=== PATIENT | male | born 1955 | race Caucasian/White ===

== ENCOUNTER → 2018-12-28 14:21 | Outpatient (CLI) | payer MEDICARE, MEDICAID, SELFPAY ==
[2018-12-20 15:13] VITALS: BMI 37.5
--- NOTE | 2018-12-28 14:22 | CT_ITS ---
STUDY: CT CHEST WITH CONTRAST REASON FOR EXAM: Male, 63 years old. Midsternal chest pain. Hypertension. RADIATION DOSAGE (If Supplied By Facility): CTDIvol = ( 17.32 ) mGy, DLP = ( 881.15 ) mGycm TECHNIQUE: Transaxial imaging was performed following intravenous administration of IV Isovue 370 100. Multiplanar coronal and sagittal images were reformatted. Individualized dose optimization techniques were used for this CT. COMPARISON: None. FINDINGS: The lungs are normal. There is no demonstrated pleural abnormality. Normal heart and pericardium. There are multiple small lymph nodes within the mediastinum, which are normal in size and morphology most compatible with reactive lymph hyperplasia. Normal hilar regions. Normal enhanced pulmonary arteries. Normal aorta arch and descending thoracic aorta. There are mild degenerative changes of the thoracic spine. Small hiatal hernia. CT/Chest WITH Contrast IMPRESSION: No acute abnormalities seen. No evidence of thoracic aortic aneurysm. Electronically Signed: Greg Casey, at 12:47 EDT , Service support ,
[2018-12-28 14:41] LABS: CREATININE FINGERSTICK 0.7 mg/dL (0.70-1.30); EGFR FINGERSTICK > 60.0000 mL/min (>60)
== END ==
PROVIDERS: Family Provider Internal Medicine; PCP Internal Medicine; Referring Provider Internal Medicine Cardiovascular Disease; Visit Provider Internal Medicine Cardiovascular Disease
DX: I71.2 Thoracic aortic aneurysm, without rupture (principal)
CPT/HCPCS: 71260; Q9967

== ENCOUNTER → 2019-01-17 08:30 | Outpatient (CLI) | payer MEDICARE, MEDICAID, SELFPAY ==
[2018-12-20 15:13] VITALS: BMI 37.5
[2019-01-09 09:20] VITALS: BMI 37.5
[2019-01-09 12:08] LABS: Hematocrit 48.4 % (40-54); Hemoglobin 16.9 g/dL (13.0-16.5); Mean Corp Hgb Conc 34.9 g/dL (32-36); Mean Corpuscular Hgb 31.7 pg (27.0-32.0); Mean Corpuscular Volume 90.8 fL (80-94); Mean Platelet Vol. 9.1 fl (6.2-12.0); Platelet Count 250 K/mm3 (150-450); RBC Distribution Width CV 12.8 % (11.6-14.6); RBC Distribution Width SD 42.4 fl (35.1-43.9); Red Blood Count 5.33 M/mm3 (4.6-6.2); White Blood Count 7.4 K/mm3 (4.4-11.0)
[2019-01-09 12:09] LABS: Anion Gap 7 (5-15); BUN 13 mg/dL (7-18); BUN/Creat Ratio 14.1 RATIO (10-20); Chloride 102 mmol/L (98-107); Creatinine, Serum 0.92 mg/dL (0.70-1.30); EST Glomerular Filtration Rate 89 mL/min (>60); Est Glom Filt Rate - Afr Amer 108 mL/min (>60); Glucose 136 mg/dL (74-106); International Normalized Ratio 1.1; Partial Thromboplast Time 31.3 Seconds (24.1-36.2); Potassium 4.3 mmol/L (3.5-5.1); Prothrombin Time (Protime)PT. 13.5 SECONDS (11.7-14.9); Sodium Level 137 mmol/L (136-145)
== END ==
PROVIDERS: Family Provider Internal Medicine; PCP Internal Medicine; Referring Provider Internal Medicine Cardiovascular Disease; Visit Provider Internal Medicine Cardiovascular Disease
DX: R07.9 Chest pain, unspecified (principal); R06.02 Shortness of breath; I35.0 Nonrheumatic aortic (valve) stenosis
CPT/HCPCS: 36415; 80048; 85027; 85610; 85730

== ENCOUNTER 2019-04-20 13:12 | Inpatient (IN) | payer MEDICARE, MEDICAID, SELFPAY ==
[2019-01-09 09:20] VITALS: BMI 37.5
[2019-04-20] VITALS (15 sets, daily range): BP systolic 104–142; BP diastolic 62–89; PULSE 78–102; RESP 16–23; TEMP 35.9–36.7; O2SAT 92–98; BMI 30.7; BMI 30.8; BMI 37.0
--- NOTE | 2019-04-20 13:36 | EKG12_ITS ---
Test Reason : REPEAT Blood Pressure : / mmHG Vent. Rate : 090 BPM Atrial Rate : 090 BPM P-R Int : 176 ms QRS Dur : 078 ms QT Int : 330 ms P-R-T Axes : 062 039 088 degrees QTc Int : 403 ms Normal sinus rhythm Anteroseptal infarct , age undetermined Abnormal ECG Confirmed by MARY MAYEN, JAMES ([id number]), art editor GERALD VINES ([id number]) on 04/23/2019 2:06:32 PM Referred By: NANCY Confirmed By:SUBHASH HERNANDEZ MD
--- NOTE | 2019-04-20 13:37 | EKG12_ITS ---
Test Reason : CP Blood Pressure : / mmHG Vent. Rate : 091 BPM Atrial Rate : 091 BPM P-R Int : 172 ms QRS Dur : 080 ms QT Int : 326 ms P-R-T Axes : 068 042 094 degrees QTc Int : 400 ms Normal sinus rhythm Anteroseptal infarct , age undetermined Abnormal ECG Confirmed by MARY MAYEN, JAMES ([id number]), primer expeditor and drier GERALD VINES ([id number]) on 04/23/2019 2:06:18 PM Referred By: NANCY Confirmed By:SUBHASH HERNANDEZ MD
[2019-04-20 13:45] LABS: Absolute Lymphocyte Count 1.77 X10^3/uL (0.83-4.51); Absolute Neutrophil Count 5.9 X10^3/uL (2.0-7.7); Basophil# 0.05 X10^3/uL; Basophil% 0.6 % (0-1); Eosinophil# 0.07 X10^3/uL; Eosinophils% 0.8 % (0-5); Hematocrit 49.3 % (40-54); Hemoglobin 16.5 g/dL (13.0-16.5); Lymphocyte # 1.77 X10^3/ul (4.0); Lymphocyte % 19.9 % (19-41); Mean Corp Hgb Conc 33.5 g/dL (32-36); Mean Corpuscular Hgb 30.5 pg (27.0-32.0); Mean Corpuscular Volume 91.1 fL (80-94); Mean Platelet Vol. 9.1 fl (6.2-12.0); Monocyte# 1.09 X10^3/uL; Monocyte% 12.3 % (0-10); NRBC Flagged by Analyzer 0 % (0-5); Neutrophil # 5.88 X10^3/uL (2.7-7.7); Neutrophil % 66.1 % (47-70); Platelet Count 220 K/mm3 (150-450); RBC Distribution Width SD 43.4 fl (35.1-43.9); Red Blood Count 5.41 M/mm3 (4.6-6.2); White Blood Count 8.9 K/mm3 (4.4-11.0)
--- NOTE | 2019-04-20 13:47 | RAD_ITS ---
STUDY: X-RAY CHEST REASON FOR EXAM: Male, 63 years old. CHEST PAIN, EPIGASTRIC PAIN TECHNIQUE: AP COMPARISON: None. FINDINGS: EKG The lungs are clear and expanded. There is no demonstrated pleural abnormality. Normal size heart for portable technique. Normal mediastinum and kelli. Normal visualized pulmonary arteries for portable technique. Normal visualized aortic arch and descending thoracic aorta. Normal visualized thoracic spine. Normal visualized ribs, clavicles, and shoulders. There is no demonstrated abnormality of the visualized soft tissue structures of the upper abdomen. RAD/Chest 1 View (Portable) IMPRESSION: Nonacute portable x-ray examination of the chest. Electronically Signed: Aman Salgado MD (Brooks) at 15:39 EST , Service support ,
[2019-04-20 13:55] LABS: International Normalized Ratio 1.1; Prothrombin Time (Protime)PT. 13.6 SECONDS (11.7-14.9)
[2019-04-20 13:56] LABS: Partial Thromboplast Time 29.2 Seconds (24.1-36.2)
--- NOTE | 2019-04-20 13:57 | ED.DCSUM_ITS ---
History of Present Illness Chief Complaint: Chest Pain Informant: Patient Narrative: Patient presents to the emergency department for the evaluation of a burning pain across his lower anterior chest. It is worse with exertion. He states is been constant since 1030 last night. Patient seems also to change his story however and at some points tells me that the pain is not there. He says he first experienced it about a year ago while raking leaves. He recently transferred care from Dr. Summers to Dr. Gutierrez. He has a history of a bicuspid aortic valve with moderately severe stenosis (nonrheumatic).. In November 2018 he did not wish to proceed with invasive evaluation of his aortic valve. There was reported thoracic aortic aneurysm but on CT of the chest was noted not to have that. He has a history of hypertension mixed hyperlipidemia. Also a history of diabetes. He is a smoker. Past Medical History - Allergies and Home Meds Allergies/Adverse Reactions: Allergies No Known Allergies Allergy (Verified 04/20/19 13:24) Primary Care Physician: Rio Freire MD [Primary Care Provider] - Smoking Status: Current every day smoker Review of Systems General: Denies: Chills, Fever, Sweats Eyes: Denies: Visual changes - bilaterally, Diplopia ENT: Denies: Rhinorrhea, Sore throat Cardiovascular: Reports: Chest pain. Denies: Palpitations Respiratory: Reports: Dyspnea. Denies: Cough, Dyspnea on exertion Gastrointestinal: Denies: Abdominal pain, Nausea, Vomiting, Diarrhea, Melena, Hematochezia Genitourinary: Denies: Dysuria, Hematuria, Frequency Musculoskeletal: Denies: Back pain, Extremity Pain Skin: Denies: Rash, Wounds Neurological: Denies: Headache, Weakness, Numbness Physical Exam Vital Signs/Narrative: Vital Signs Temp Pulse Resp BP Pulse Ox 04/20/19 13:15 96.7 F L 102 H 18 142/71 H 98 Inital Vital Signs reviewed: Yes General: Well nourished, Well developed, No Acute Distress Head: Normocephalic, Atraumatic Eyes: Perrl, EOMI ENT: Moist mucous membranes, No rhinorrhea Neck: Supple, Nontender Cardiovascular: Regular rate, Regular rhythm Respiratory: No distress, CTA bilaterally, Chest nontender Abdomen: Soft, Nontender, Nondistended, Normal bowel sounds Back: Nontender, Normal Inspection Extremities: Nontender, No edema Skin: Normal color, No rash Neurological: Alert, Oriented x3, Cranial nerves II-XII grossly intact, Normal Strength, Normal Sensation Psychological: Normal affect, Normal Mood Diagnostic/Tx/Re-eval - Medical Decision Making His initial EKG is concerning in lead III for upsloping of the ST segments. There is a deep Q wave in V3 as well as ST elevation. These were not noted on EKG dated 12/20/2018. Dr. Sena was contacted who is come to the emergency department and evaluated the EKGs. We repeated it 20 minutes after his first. At this point we do not feel that he is meeting STEMI criteria. The patient's troponin returned at 5.89. I spoke again with Dr. Sena and we will take the patient to the [facility]. Patient is currently telling me that he is not having any discomfort. He received 5000 units of heparin and aspirin. - Critical Care Time Critical care time (excluding procedures): 30-74 minutes - 35 minutes ED Disposition - Plan for ED Patient: Disposition: Home or Assisted Living Diagnosis: NSTEMI (non-ST elevated myocardial infarction), Unstable angina Referrals: Rio Freire MD [Primary Care Provider] -
[2019-04-20 14:06] LABS: Anion Gap 6 (5-15); BUN 12 mg/dL (7-18); Calcium,Total 10.2 mg/dL (8.5-10.1); Chloride 99 mmol/L (98-107); EST Glomerular Filtration Rate 81 mL/min (>60); Est Glom Filt Rate - Afr Amer 98 mL/min (>60); Estimated Creatinine Clearance 67.48 ml/min; Glucose 105 mg/dL (74-106); Magnesium 2.1 mg/dL (1.6-2.6); Potassium 4.5 mmol/L (3.5-5.1); Sodium Level 136 mmol/L (136-145)
[2019-04-20 14:12] LABS: Alcohol, Blood (Medical)-Serum < 3.0 mg/dL
[2019-04-20] MEDS: Heparin 10,000 UNITS/10 ML Vial 5000 UNITS IV (14:16)
[2019-04-20] MEDS: Aspirin 325 MG Tablet PO (14:16)
--- NOTE | 2019-04-20 14:21 | NURSING ---
ICU AFTER GAMING DIRECTOR MARIEL SMITH
--- NOTE | 2019-04-20 14:39 | NURSING ---
[id number]
--- NOTE | 2019-04-20 14:54 | PCM.CONS.C ---
Reason for Consult Date of Consultation: 04/20/19 History of Present Illness: Patient presents to the emergency department for the evaluation of a burning pain across his lower anterior chest. It is worse with exertion. He states is been constant since 1030 last night. Patient seems also to change his story however and at some points tells me that the pain is not there. He says he first experienced it about a year ago while raking leaves. He recently transferred care from Dr. Summers to Dr. Gutierrez. He has a history of a bicuspid aortic valve with moderately severe stenosis (nonrheumatic).. In November 2018 he did not wish to proceed with invasive evaluation of his aortic valve. There was reported thoracic aortic aneurysm but on CT of the chest was noted not to have that. He has a history of hypertension mixed hyperlipidemia. Also a history of diabetes. He is a smoker. Patient is a poor historian. He is unable to pinpoint when his symptoms started and why he decided to come to the ER today. He initially said that his pain went away with Pepto-Bismol. Later on in the conversation he said that he has minimal chest discomfort. Further on he said that when he sits up his pain goes away. Patient's EKG was reviewed and revealed Q waves and ST elevation in the anterior leads. Repeat EKG revealed no significant dynamic changes. At that point since patient was not having any chest pain we felt that it will be reasonable to wait for his troponin and reevaluate the patient. The troponin came back at 5.8. Patient states that he has minimal chest discomfort. He emphasizes that he will not have open heart surgery and will not go out of the [facility] to [facility] or [place] for any medical care. He states that he would rather here in [place] then go out of the area. Review of systems: All systems reviewed. All else is negative except that in the HPI. Past Medical History Allergies/Adverse Reactions: Allergies No Known Allergies Allergy (Verified 04/20/19 13:24) Home Medications: Ambulatory Orders Medication Instructions Recorded gabapentin 300 mg capsule 300 mg PO BID 08/17/18 glipizide 5 mg tablet 10 mg PO DAILY tab 08/17/18 lisinopril 10 mg tablet 10 mg PO DAILY 08/17/18 nitroglycerin 0.4 mg sublingual 0.4 mg SUBLINGUAL Q5-15M PRN 08/17/18 tablet pravastatin 40 mg tablet 40 mg PO QHS tab 08/17/18 aspirin 81 mg tablet,delayed 81 mg PO DAILY tab 12/20/18 release metformin 500 mg tablet 500 mg PO BID tab 12/20/18 Past Medical History (Chronic Problems): Chronic Problems (Last Updated 12/20/18 @ 15:28 by Evelia Salazar) Type 2 diabetes mellitus (Chronic) Mixed hyperlipidemia (Chronic) GERD (gastroesophageal reflux disease) (Chronic) COPD (chronic obstructive pulmonary disease) (Chronic) Thoracic aortic aneurysm without rupture (Chronic) Essential hypertension (Chronic) Nonrheumatic aortic (valve) stenosis (Chronic) Bicuspid aortic valve (Chronic) PAD (peripheral artery disease) (Chronic) Smoking Status: Current every day smoker Objective: Vital Signs Temp Pulse Resp BP Pulse Ox 96.7 F L 102 H 18 142/71 H 98 04/20/19 13:15 04/20/19 13:15 04/20/19 13:15 04/20/19 13:15 04/20/19 13:15 Oxygen Delivery Method Room Air Weight: 185 lb Body Mass Index (BMI) 30.7 General: Awake, Alert, Oriented x 3 HEENT: Atraumatic Oral: Moist Mucosa Neck: Supple Cardiovascular: Regular Rhythm Abdomen: Soft Skin: No Rashes Psych/Mental Status: Appropriate 04/20/19 13:35: WBC 8.9, RBC 5.41, Hgb 16.5, Hct 49.3, MCV 91.1, MCH 30.5, MCHC 33.5, Plt Count 220, MPV 9.1, Immature Gran % (Auto) 0.300, Neut % (Auto) 66.1, Lymph % (Auto) 19.9, [place] % (Auto) 12.3 H, Eos % (Auto) 0.8, Baso % (Auto) 0.6, Absolute Neuts (auto) 5.9, Nucleated RBC % 0 04/20/19 13:35: Sodium 136, Potassium 4.5, Chloride 99, Carbon Dioxide 31.0, Anion Gap 6, BUN 12, Creatinine 1.00, Est GFR (MDRD) Af Amer 98, Est GFR (MDRD) Non-Af 81, BUN/Creatinine Ratio 12.0, Glucose 105, Calcium 10.2 H, Magnesium 2.1, Troponin I 5.890 H* 04/20/19 13:35: PT 13.6, INR 1.1, APTT 29.2 Rhythm: EKG: ECHO: Stress Test: Cardiac Cath: PCI: CT Surgery: Holter monitor: EPS: PPM: CXR: Chest CT Scan: Assessment/Plan 1. Non-ST elevation IL: Treatment options were discussed with the patient in detail. We will proceed with coronary angiography. Patient is willing to proceed. Rest of the management will be based on coronary angiography findings. 2. Aortic stenosis: Patient would benefit from attic valve replacement at this point. However he had refused work-up for this. Once we have the angiographic findings we will discuss this with the patient again and see if he is willing to reconsider.
[2019-04-20 16:56] LABS: Bedside Glucose 103 mg/dL (70-110)
[2019-04-20] MEDS: 0.9% Normal Saline 1,000 ML 60 ML IV (17:00)
--- NOTE | 2019-04-20 17:46 | HP.PCM_ITS ---
<uW Deshpande - Last Filed: 04/20/19 17:46> Problem List (1) NSTEMI (non-ST elevated myocardial infarction) Status: Acute (2) CAD (coronary artery disease) Status: Chronic (3) Tobacco abuse Status: Chronic (4) Type 2 diabetes mellitus Status: Chronic (5) Mixed hyperlipidemia Status: Chronic (6) GERD (gastroesophageal reflux disease) Status: Chronic (7) COPD (chronic obstructive pulmonary disease) Status: Chronic (8) Thoracic aortic aneurysm without rupture Status: Chronic (9) Essential hypertension Status: Chronic (10) Nonrheumatic aortic (valve) stenosis Status: Chronic (11) Bicuspid aortic valve Status: Chronic (12) PAD (peripheral artery disease) Status: Chronic History of Present Illness Date of Admission: 04/20/19 Chief Complaint: chest pain The patient is a 63 year old M with pmhx of aortic stenosis, bicuspid aortic valve, nicotine abuse, DMt2, HTN, HLD, thoracic aortic aneurysm previous pt of [facility] cardiology who presented to the ER with c/o burning chest pain. He had this intermittently for up to a year when it first occurred raking leaves, however last night it started and remained constant, and then he had nausea and vomiting. He came to the ER and was found to have Q waves and ST changes in the anterior leads. Troponin was elevated at 5.890 and he was felt to have NSTEMI, and taken to the bottle label inspector by Dr. Sena. The patient had multi vessel disease and severe aortic stenosis and transfer to [facility] was refused. He initially wanted to stay here and have high risk PCI, however after being admitted to the hospital floor he changed his mind and desired transfer to [facility]. At this point he is waiting for acceptance and currently complains of mild burning chest pain. [] Past Medical History Past Medical History (Chronic Problems): Chronic Problems (Last Updated 12/20/18 @ 15:28 by Evelia Salazar) CAD (coronary artery disease) (Chronic) Tobacco abuse (Chronic) Type 2 diabetes mellitus (Chronic) Mixed hyperlipidemia (Chronic) GERD (gastroesophageal reflux disease) (Chronic) COPD (chronic obstructive pulmonary disease) (Chronic) Thoracic aortic aneurysm without rupture (Chronic) Essential hypertension (Chronic) Nonrheumatic aortic (valve) stenosis (Chronic) Bicuspid aortic valve (Chronic) PAD (peripheral artery disease) (Chronic) Medical History: Medical History (Last Updated 12/20/18 @ 15:28 by Evelia Salazar) Tobacco abuse (Acute) Z72.0 Type 2 diabetes mellitus (Chronic) E11.9 Mixed hyperlipidemia (Chronic) E78.2 GERD (gastroesophageal reflux disease) (Chronic) K21.9 COPD (chronic obstructive pulmonary disease) (Chronic) J44.9 Thoracic aortic aneurysm without rupture (Chronic) I71.2 Essential hypertension (Chronic) I10 Nonrheumatic aortic (valve) stenosis (Chronic) I35.0 Bicuspid aortic valve (Chronic) Q23.1 PAD (peripheral artery disease) (Chronic) I73.9 DDD (degenerative disc disease) Allergies No Known Allergies Allergy (Verified 04/20/19 13:24) Home Medications: Ambulatory Orders Medication Instructions Recorded gabapentin 300 mg capsule 300 mg PO BID 08/17/18 glipizide 5 mg tablet 10 mg PO DAILY tab 08/17/18 lisinopril 10 mg tablet 10 mg PO DAILY 08/17/18 nitroglycerin 0.4 mg sublingual 0.4 mg SUBLINGUAL Q5-15M PRN 08/17/18 tablet pravastatin 40 mg tablet 40 mg PO QHS tab 08/17/18 aspirin 81 mg tablet,delayed 81 mg PO DAILY tab 12/20/18 release metformin 500 mg tablet 500 mg PO BID tab 12/20/18 Surgical History: no surgical history Lives: Spouse/ Significant Other Smoking Status: Current every day smoker Tobacco Use: Cigarettes Alcohol: None Drugs: None - *Family History Maternal History Items: No pertinent history Paternal History Items: No pertinent history Review of Systems Constitutional: Denies: Chills, Fever, Weight Change HEENT: Denies: Head Aches, Sinus Congestion, Sinus Drainage Cardiovascular: Reports: Chest Pain. Denies: Palpitations Respiratory: Denies: Cough, Shortness of breath at rest, Sputum production Gastrointestinal: Reports: Nausea, Vomiting. Denies: Abdominal Pain Genitourinary: Denies: Dysuria Musculoskeletal: Denies: Joint Pain, Joint Tenderness Skin: Denies: Rash, Wounds Neurological: Denies: Numbness, Tingling, Focal weakness Psychiatric: Denies: Anxiety, Depression, Homicidal Ideations, Suicidal Ideations Hematologic/ Lymphatic: Denies: Easy Bruising, Easy Bleeding VTE Information - Inpt Only VTE Present on Admission: No VTE Mechan Device Prophylaxis: None VTE Pharm Prophylaxis ordered?: Yes Patient Problems: Active and Suspected Problems (Last Updated 12/20/18 @ 15:28 by Evelia Plascencia itt) NSTEMI (non-ST elevated myocardial infarction) (Acute) Unstable angina (Acute) - Physical Exam Vitals/I&O's: Vital Signs Temp Pulse Resp BP Pulse Ox 96.7 F L 79 18 113/63 92 04/20/19 13:15 04/20/19 17:30 04/20/19 17:30 04/20/19 17:30 04/20/19 17:30 Oxygen Delivery Method Room Air Weight: 222 lb 14.197 oz Body Mass Index (BMI) 37.0 General: Alert, Oriented x3, Cooperative HEENT: Atraumatic, PERRLA, EOMI, Normocephalic Neck: Supple, No JVD, Negative Carotid Bruits Lungs: Clear to auscultation, Normal air movement Cardiovascular: Regular rate, No murmurs Abdomen: Bowel Sounds Present, Soft, Non Tender Extremities: No edema, Capillary Refill Less than 3 Seconds Skin: No rashes, No breakdown Musculoskeletal: No Tenderness to Palpation of Joints or Extremities Neurological: Cranial nerves II-XII grossly intact Psych/Mental Status: Normal Affect, Appropriate Laboratory Results 04/20/19 13:35: WBC 8.9, RBC 5.41, Hgb 16.5, Hct 49.3, MCV 91.1, MCH 30.5, MCHC 33.5, RDW Std Deviation 43.4, RDW Coeff of Dwayne 13.0, Plt Count 220, MPV 9.1, Immature Gran % (Auto) 0.300, Neut % (Auto) 66.1, Lymph % (Auto) 19.9, Person % (Auto) 12.3 H, Eos % (Auto) 0.8, Baso % (Auto) 0.6, Absolute Neuts (auto) 5.9, Absolute Lymphs (auto) 1.77, Nucleated RBC % 0 04/20/19 13:35: Sodium 136, Potassium 4.5, Chloride 99, Carbon Dioxide 31.0, Anion Gap 6, BUN 12, Creatinine 1.00, Estim Creat Clear Calc 67.48, Est GFR (MDRD) Af Amer 98, Est GFR (MDRD) Non-Af 81, BUN/Creatinine Ratio 12.0, Glucose 105, Calcium 10.2 H, Magnesium 2.1, Troponin I 5.890 H* 04/20/19 13:35: PT 13.6, INR 1.1, APTT 29.2 04/20/19 13:35: Ethyl Alcohol < 3.0 04/20/19 16:50: POC Glucose 103 Current Medications Acetaminophen (Tylenol) 650 mg PO Q6H PRN PRN PRN Reason: Pain Score 1-10/Temp > 100.7 F Aspirin (Ecotrin) 81 mg PO DAILY@0800 [facility] Enoxaparin Sodium (Lovenox) 40 mg SC DAILY [facility] Gabapentin (Neurontin) 300 mg PO BID [facility] Glucagon () 1 mg IM .X1 PRN PRN Reason: Hypoglycemia Dextrose (Dextrose 10%-Water) 250 mls @ 999 mls/hr IV .Q16M PRN; Protocol PRN Reason: HYPOGLYCEMIA Sodium Chloride () 1,000 mls @ 60 mls/hr IV .[id number] [facility] Insulin Human Lispro (Humalog Kwikpen (Bkc)) 0 unit SC ACHS [facility]; Protocol Lisinopril (Zestril) 10 mg PO DAILY [facility] Melatonin (Melatonin) 3 mg PO QHS PRN PRN PRN Reason: INSOMNIA Nitroglycerin (Nitrostat) 0.4 mg SUBLINGUAL Q5M PRN PRN Reason: CARDIAC/CHEST PAIN Ondansetron HCl (Zofran) 4 mg IV Q8H PRN PRN PRN Reason: NAUSEA/VOMITING Pravastatin Sodium (Pravachol) 40 mg PO QHS [facility] Sodium Chloride () 10 - 40 ml IV UD PRN PRN Reason: SALINE FLUSH Assessment/Plan All Active Problems (Last Updated 12/20/18 @ 15:28 by Evelia Salazar) NSTEMI (non-ST elevated myocardial infarction) (Acute) Unstable angina (Acute) Chest pain (Acute) SOB (shortness of breath) (Acute) 1. CAD, NSTEMI, severe - s/p cath - transfer to [facility] for possible stents and/or TAVR. Dr. Sena following. EKG with anterior lead Q waves and ST changes. Repeat AM EKG if here. 2. Dmt2 - SSI, hold metformin, adjustment of therapy at DC to help prevent CV events would be ideal. 3. HTN - stable 4. HLD - pravastatin 5. Nicotine abuse - patch if necessary DVT ppx: lovenox DC planning: pending acceptance at [facility]. This patient was seen by Wu Deshpande PA-C under the supervision of Dr. Rivera. <Alcides Rivera F - Last Filed: 04/20/19 18:48> History of Present Illness The patient is a 63 year old M [] Past Medical History Medical History: Medical History (Last Updated 12/20/18 @ 15:28 by Evelia Salazar) Tobacco abuse (Acute) Z72.0 Type 2 diabetes mellitus (Chronic) E11.9 Mixed hyperlipidemia (Chronic) E78.2 GERD (gastroesophageal reflux disease) (Chronic) K21.9 COPD (chronic obstructive pulmonary disease) (Chronic) J44.9 Thoracic aortic aneurysm without rupture (Chronic) I71.2 Essential hypertension (Chronic) I10 Nonrheumatic aortic (valve) stenosis (Chronic) I35.0 Bicuspid aortic valve (Chronic) Q23.1 PAD (peripheral artery disease) (Chronic) I73.9 DDD (degenerative disc disease) Allergies No Known Allergies Allergy (Verified 04/20/19 13:24) - Physical Exam Vitals/I&O's: Vital Signs Temp Pulse Resp BP Pulse Ox 96.7 F L 88 16 109/63 93 04/20/19 13:15 04/20/19 18:29 04/20/19 18:29 04/20/19 18:29 04/20/19 18:29 Oxygen Delivery Method Room Air Weight: 222 lb 14.197 oz Body Mass Index (BMI) 37.0 Intake and Output for Last 24 Hours 04/18/19 04/19/19 04/20/19 23:59 23:59 23:59 Intake Total 200 / 200 Output Total 500 / 500 Balance -300 / -300 Laboratory Results 04/20/19 13:35: WBC 8.9, RBC 5.41, Hgb 16.5, Hct 49.3, MCV 91.1, MCH 30.5, MCHC 33.5, RDW Std Deviation 43.4, RDW Coeff of Dwayne 13.0, Plt Count 220, MPV 9.1, Immature Gran % (Auto) 0.300, Neut % (Auto) 66.1, Lymph % (Auto) 19.9, Person % (Auto) 12.3 H, Eos % (Auto) 0.8, Baso % (Auto) 0.6, Absolute Neuts (auto) 5.9, Absolute Lymphs (auto) 1.77, Nucleated RBC % 0 04/20/19 13:35: Sodium 136, Potassium 4.5, Chloride 99, Carbon Dioxide 31.0, Anion Gap 6, BUN 12, Creatinine 1.00, Estim Creat Clear Calc 67.48, Est GFR (MDRD) Af Amer 98, Est GFR (MDRD) Non-Af 81, BUN/Creatinine Ratio 12.0, Glucose 105, Calcium 10.2 H, Magnesium 2.1, Troponin I 5.890 H* 04/20/19 13:35: PT 13.6, INR 1.1, APTT 29.2 04/20/19 13:35: Ethyl Alcohol < 3.0 04/20/19 16:50: POC Glucose 103 Current Medications Acetaminophen (Tylenol) 650 mg PO Q6H PRN PRN PRN Reason: Pain Score 1-10/Temp > 100.7 F Aspirin (Ecotrin) 81 mg PO DAILY@0800 [facility] Enoxaparin Sodium (Lovenox) 40 mg SC DAILY [facility] Gabapentin (Neurontin) 300 mg PO BID [facility] Glucagon () 1 mg IM .X1 PRN PRN Reason: Hypoglycemia Dextrose (Dextrose 10%-Water) 250 mls @ 999 mls/hr IV .Q16M PRN; Protocol PRN Reason: HYPOGLYCEMIA Sodium Chloride () 1,000 mls @ 60 mls/hr IV .[id number] [facility] Last Admin: 04/20/19 17:00 Dose: 60 mls/hr Documented by: Insulin Human Lispro (Humalog Kwikpen (Bkc)) 0 unit SC ACHS [facility]; Protocol Lisinopril (Zestril) 10 mg PO DAILY [facility] Melatonin (Melatonin) 3 mg PO QHS PRN PRN PRN Reason: INSOMNIA Nitroglycerin (Nitrostat) 0.4 mg SUBLINGUAL Q5M PRN PRN Reason: CARDIAC/CHEST PAIN Ondansetron HCl (Zofran) 4 mg IV Q8H PRN PRN PRN Reason: NAUSEA/VOMITING Pravastatin Sodium (Pravachol) 40 mg PO QHS [facility] Sodium Chloride () 10 - 40 ml IV UD PRN PRN Reason: SALINE FLUSH Code Visit Addendum: Dr. Rivera I personally examined the patient and reviewed the chart. I agree with the above. 63-year-old male with a bicuspid aortic valve presents with chest pain. His EKG was not convincing for a STEMI however he did have an elevated troponin and he was taken for heart cath today. He was found to have triple-vessel disease as well as severe aortic stenosis with an aortic gradient of 40. It was felt that he was too high risk to have any stents placed here however he is difficult and convincing him that surgery is the best option. He does not want, under any circumstance, to have his chest cut open and therefore he is only willing to proceed with high risk PCI and then evaluation for a TAVR. He says that his chest pain is better, and he was discussed with transferring to [facility] initially he was resistant to it however we were able to convince him that it was his best option. So transfer is pending. Inpatient E&M: [id number] Init Hosp L3
--- NOTE | 2019-04-20 17:58 | PCM.DC.SUM ---
<Wu Deshpande - Last Filed: 04/20/19 17:58> Discharge Date and Diagnosis - Problem List Patient Problems: Active and Suspected Problems (Last Updated 12/20/18 @ 15:28 by Evelia Salazar) NSTEMI (non-ST elevated myocardial infarction) (Acute) Unstable angina (Acute) Date of Admission: 04/20/19 Date of Discharge: 04/20/19 - Primary Discharge Diagnosis Active and Suspected Problems (Last Updated 12/20/18 @ 15:28 by Evelia Salazar) NSTEMI (non-ST elevated myocardial infarction) (Acute) Severe Aortic stenosis multi vessel CAD Dmt2 HTN HLD nicotine abuse hx thoracic aortic aneurysm - Secondary Discharge Diagnosis Chronic Problems (Last Updated 12/20/18 @ 15:28 by Evelia Salazar) CAD (coronary artery disease) (Chronic) Tobacco abuse (Chronic) Type 2 diabetes mellitus (Chronic) Mixed hyperlipidemia (Chronic) GERD (gastroesophageal reflux disease) (Chronic) COPD (chronic obstructive pulmonary disease) (Chronic) Thoracic aortic aneurysm without rupture (Chronic) Essential hypertension (Chronic) Nonrheumatic aortic (valve) stenosis (Chronic) Bicuspid aortic valve (Chronic) PAD (peripheral artery disease) (Chronic) Hospital Course and Treatment Imaging Results: CATH REPORT PENDING. Consults: Cardiology Nathen Operations: None Procedures: Cardiac catheterization Summary of Care Provided: Hospital Course: The patient is a 63 year old M with pmhx of severe , thoracic aortic aneurysm, HTN, HLD, nicotine abuse, DMt2, who presented with burning chest pain. There were Q waves and ST changes in the anterior leads with an elevated troponin. Cardiology took the patient to the label machine operator and reported multivessel CAD with severe aortic stenosis. Transfer was recommended to [facility] for further intervention. The patient initially refused, later he changed his mind after arriving on the floor. Transfer was arranged. Currently he has mild burning chest pain. VSS. Further care as directed by accepting facility. This patient was seen by Wu Deshpande PA-C under the supervision of Dr. Rivera. [] Patient Problems: Active and Suspected Problems (Last Updated 12/20/18 @ 15:28 by Evelia Salazar) NSTEMI (non-ST elevated myocardial infarction) (Acute) Unstable angina (Acute) - Physical Exam Vitals/I&O's: Vital Signs Temp Pulse Resp BP Pulse Ox 96.7 F L 82 16 118/70 92 04/20/19 13:15 04/20/19 17:56 04/20/19 17:45 04/20/19 17:45 04/20/19 17:45 Oxygen Delivery Method Room Air Weight: 222 lb 14.197 oz Body Mass Index (BMI) 37.0 Intake and Output for Last 24 Hours 04/18/19 04/19/19 04/20/19 23:59 23:59 23:59 Intake Total 200 / 200 Output Total 500 / 500 Balance -300 / -300 General: Alert, Oriented x3, Cooperative HEENT: Atraumatic, PERRLA, EOMI, Normocephalic Neck: Supple, No JVD, Negative Carotid Bruits Lungs: Clear to auscultation, Normal air movement Cardiovascular: Regular rate, No murmurs Abdomen: Bowel Sounds Present, Soft, Non Tender Extremities: No edema, Capillary Refill Less than 3 Seconds Skin: No rashes, No breakdown Musculoskeletal: No Tenderness to Palpation of Joints or Extremities Neurological: Cranial nerves II-XII grossly intact Psych/Mental Status: Normal Affect, Appropriate, Alert and oriented to time, place, person, mood and affect Laboratory Results 04/20/19 13:35: WBC 8.9, RBC 5.41, Hgb 16.5, Hct 49.3, MCV 91.1, MCH 30.5, MCHC 33.5, RDW Std Deviation 43.4, RDW Coeff of Dwayne 13.0, Plt Count 220, MPV 9.1, Immature Gran % (Auto) 0.300, Neut % (Auto) 66.1, Lymph % (Auto) 19.9, [place] % (Auto) 12.3 H, Eos % (Auto) 0.8, Baso % (Auto) 0.6, Absolute Neuts (auto) 5.9, Absolute Lymphs (auto) 1.77, Nucleated RBC % 0 04/20/19 13:35: Sodium 136, Potassium 4.5, Chloride 99, Carbon Dioxide 31.0, Anion Gap 6, BUN 12, Creatinine 1.00, Estim Creat Clear Calc 67.48, Est GFR (MDRD) Af Amer 98, Est GFR (MDRD) Non-Af 81, BUN/Creatinine Ratio 12.0, Glucose 105, Calcium 10.2 H, Magnesium 2.1, Troponin I 5.890 H* 04/20/19 13:35: PT 13.6, INR 1.1, APTT 29.2 04/20/19 13:35: Ethyl Alcohol < 3.0 04/20/19 16:50: POC Glucose 103 Current Medications Acetaminophen (Tylenol) 650 mg PO Q6H PRN PRN PRN Reason: Pain Score 1-10/Temp > 100.7 F Aspirin (Ecotrin) 81 mg PO DAILY@0800 [facility] Enoxaparin Sodium (Lovenox) 40 mg SC DAILY [facility] Gabapentin (Neurontin) 300 mg PO BID [facility] Glucagon () 1 mg IM .X1 PRN PRN Reason: Hypoglycemia Dextrose (Dextrose 10%-Water) 250 mls @ 999 mls/hr IV .Q16M PRN; Protocol PRN Reason: HYPOGLYCEMIA Sodium Chloride () 1,000 mls @ 60 mls/hr IV .[id number] SOBIA Insulin Human Lispro (Humalog Kwikpen (Bkc)) 0 unit SC ACHS [facility]; Protocol Lisinopril (Zestril) 10 mg PO DAILY [facility] Melatonin (Melatonin) 3 mg PO QHS PRN PRN PRN Reason: INSOMNIA Nitroglycerin (Nitrostat) 0.4 mg SUBLINGUAL Q5M PRN PRN Reason: CARDIAC/CHEST PAIN Ondansetron HCl (Zofran) 4 mg IV Q8H PRN PRN PRN Reason: NAUSEA/VOMITING Pravastatin Sodium (Pravachol) 40 mg PO QHS [facility] Sodium Chloride () 10 - 40 ml IV UD PRN PRN Reason: SALINE FLUSH Discharge Diet: Low fat/ Low Cholesterol, 1800 Calorie Control Diet, 2000 mg Sodium Diet Discharge Activity: - - as directed by receiving facility Home Medications: Medications to take at Discharge gabapentin 300 mg capsule 300 mg PO BID 08/17/18 glipizide 5 mg tablet 10 mg PO DAILY tab 08/17/18 lisinopril 10 mg tablet 10 mg PO DAILY 08/17/18 nitroglycerin 0.4 mg sublingual tablet 0.4 mg SUBLINGUAL Q5-15M PRN 08/17/18 pravastatin 40 mg tablet 40 mg PO QHS tab 08/17/18 aspirin 81 mg tablet,delayed release 81 mg PO DAILY tab 12/20/18 metformin 500 mg tablet 500 mg PO BID tab 12/20/18 Primary Care Physician: Rio Freire MD [Primary Care Provider] - Please follow up with your Primary Care Physician in: as directed Please Follow Up With: Rolo Gutierrez MD When: as directed Disposition: Acute care Hospital Minutes spent on discharge:: 45 Medical Necessity - Tobacco Use Smoking Status: Current every day smoker Tobacco Use: Cigarettes Meaningful Use Info Meaningful Use Diagnoses (Choose all that apply): None applicable <Alcides Rivera - Last Filed: 04/20/19 18:51> Discharge Date and Diagnosis - Primary Discharge Diagnosis Active and Suspected Problems (Last Updated 12/20/18 @ 15:28 by Evelia Salazar) NSTEMI (non-ST elevated myocardial infarction) (Acute) Unstable angina (Acute) - Secondary Discharge Diagnosis Chronic Problems (Last Updated 12/20/18 @ 15:28 by Evelia Salazar) CAD (coronary artery disease) (Chronic) Tobacco abuse (Chronic) Type 2 diabetes mellitus (Chronic) Mixed hyperlipidemia (Chronic) GERD (gastroesophageal reflux disease) (Chronic) COPD (chronic obstructive pulmonary disease) (Chronic) Thoracic aortic aneurysm without rupture (Chronic) Essential hypertension (Chronic) Nonrheumatic aortic (valve) stenosis (Chronic) Bicuspid aortic valve (Chronic) PAD (peripheral artery disease) (Chronic) Hospital Course and Treatment Imaging Results: 04/20/19 13:47 Chest 1 View (Portable) [RAD] Stat Summary of Care Provided: The patient is a 63 year old M [] - Physical Exam Vitals/I&O's: Vital Signs Temp Pulse Resp BP Pulse Ox 96.7 F L 88 16 109/63 93 04/20/19 13:15 04/20/19 18:29 04/20/19 18:29 04/20/19 18:29 04/20/19 18:29 Oxygen Delivery Method Room Air Weight: 222 lb 14.197 oz Body Mass Index (BMI) 37.0 Intake and Output for Last 24 Hours 04/18/19 04/19/19 04/20/19 23:59 23:59 23:59 Intake Total 200 / 200 Output Total 500 / 500 Balance -300 / -300 Laboratory Results 04/20/19 13:35: WBC 8.9, RBC 5.41, Hgb 16.5, Hct 49.3, MCV 91.1, MCH 30.5, MCHC 33.5, RDW Std Deviation 43.4, RDW Coeff of Dwayne 13.0, Plt Count 220, MPV 9.1, Immature Gran % (Auto) 0.300, Neut % (Auto) 66.1, Lymph % (Auto) 19.9, [place] % (Auto) 12.3 H, Eos % (Auto) 0.8, Baso % (Auto) 0.6, Absolute Neuts (auto) 5.9, Absolute Lymphs (auto) 1.77, Nucleated RBC % 0 04/20/19 13:35: Sodium 136, Potassium 4.5, Chloride 99, Carbon Dioxide 31.0, Anion Gap 6, BUN 12, Creatinine 1.00, Estim Creat Clear Calc 67.48, Est GFR (MDRD) Af Amer 98, Est GFR (MDRD) Non-Af 81, BUN/Creatinine Ratio 12.0, Glucose 105, Calcium 10.2 H, Magnesium 2.1, Troponin I 5.890 H* 04/20/19 13:35: PT 13.6, INR 1.1, APTT 29.2 04/20/19 13:35: Ethyl Alcohol < 3.0 04/20/19 16:50: POC Glucose 103 Current Medications Acetaminophen (Tylenol) 650 mg PO Q6H PRN PRN PRN Reason: Pain Score 1-10/Temp > 100.7 F Aspirin (Ecotrin) 81 mg PO DAILY@0800 [facility] Enoxaparin Sodium (Lovenox) 40 mg SC DAILY [facility] Gabapentin (Neurontin) 300 mg PO BID [facility] Glucagon () 1 mg IM .X1 PRN PRN Reason: Hypoglycemia Dextrose (Dextrose 10%-Water) 250 mls @ 999 mls/hr IV .Q16M PRN; Protocol PRN Reason: HYPOGLYCEMIA Sodium Chloride () 1,000 mls @ 60 mls/hr IV .[id number] [facility] Last Admin: 04/20/19 17:00 Dose: 60 mls/hr Documented by: Insulin Human Lispro (Humalog Kwikpen (Bkc)) 0 unit SC ACHS [facility]; Protocol Lisinopril (Zestril) 10 mg PO DAILY [facility] Melatonin (Melatonin) 3 mg PO QHS PRN PRN PRN Reason: INSOMNIA Nitroglycerin (Nitrostat) 0.4 mg SUBLINGUAL Q5M PRN PRN Reason: CARDIAC/CHEST PAIN Ondansetron HCl (Zofran) 4 mg IV Q8H PRN PRN PRN Reason: NAUSEA/VOMITING Pravastatin Sodium (Pravachol) 40 mg PO QHS SOBIA Sodium Chloride () 10 - 40 ml IV UD PRN PRN Reason: SALINE FLUSH Code Visit Addendum: Dr. Rivera I personally examined the patient and reviewed the chart. I agree with the above. 63-year-old male with a bicuspid aortic valve presents with chest pain. His EKG was not convincing for a STEMI however he did have an elevated troponin and he was taken for heart cath today for an NSTEMI. He was found to have triple-vessel disease as well as severe aortic stenosis with an aortic gradient of 40. It was felt that he was too high risk to have any stents placed here however he is difficult and convincing him that surgery is the best option. He does not want, under any circumstance, to have his chest cut open and therefore he is only willing to proceed with high risk PCI and then evaluation for a TAVR. He says that his chest pain is better, and he was discussed with transferring to [facility] initially he was resistant to it however we were able to convince him that it was his best option. We were able to orchestrate transfer to [facility] and he does have a bed available so hopefully he should be going tonight. OBSV E&M: [id number] Observ/hosp same date L3
--- NOTE | 2019-04-20 19:31 | CL.D_ITS ---
Patient Name: FRANK MCCRAY Study Date: 04/20/2019 Performing: Alondra Sena MD Ht: 65 inches 165.1 cm : 1955 Wt: 218.3 lbs 98.88 kg Age: 63 Gender: male BSA: 2.05 PROCEDURE(S) PERFORMED [id number]/COR CLINICAL PROFILE AND INDICATIONS Indications: ACS <= 24 hrs Heart Failure: None Stress/Imaging Stress/Image Study Performed: No CAD Presentations: Non-STEMI. Symptom onset Date/Time: 04/19/19 Time Not Available CONCLUSIONS multivessel CAD. (h/o severe .) RECOMMENDATIONS Surgery consult for coronary revascularization + AVR DESCRIPTION OF PROCEDURE The patient arrived to the procedure lab. The risks and benefits of the procedure as well as a full d escription of our services here and current unavailability of surgical backup were fully explained to the patient and/or their significant other prior to the catheterization. The Timeout was completed, verifying the correct patient and procedure. The patient's procedural site was prepped and draped in the usual fashion. Local anesthetic was given subcutaneously to right radial region with Lidocaine 2% . Using a modified Seldinger technique, arterial access was obtained via the right radial artery, a 6 Fr sheath was inserted. Left Coronary Artery selective angiography was performed in multiple views u sing a 5 Fr. JL4 catheter. Right Coronary Artery selective angiography was then performed in multiple views using a 5 Fr. JR 4 catheter.The arterial sheath was pulled and a TR Band was applied for hemos tasis CORONARY ANGIOGRAPHY DOMINANCE: Left Dominant LEFT HEART ASSESSMENT Left Ventricular Ejection Fraction: Not assessed LEFT MAIN: Mild luminal irregularities LEFT ANTERIOR DESCENDING ARTERY: OSTIAL LAD: 80 % Stenosis PROX LAD: 80 % Stenosis DIAGONAL 1: Ostial - 80 % Stenosis CIRCUMFLEX ARTERY: MID CIRC: 80 % Stenosis OM 1: Proximal - mild to moderate diffuse disease RIGHT CORONARY ARTERY: MID RCA: 80 % Stenosis COMPLICATIONS No Complications PROCEDURE MEDICATIONS Versed 1 mg IV Fentanyl 50 mcg IV Versed 1 mg IV Oxygen: 2 L/min via nasal cannula Heparin given IA 04/20/2019 15:16:19 Verapamil 2.5mg, Ntg 100mcgs, 3000 units of Heparin given IA 04/20/2019 15:16:19 SUMMARY OF HEMODYNAMIC DATA Time AIR REST ECG 15:02:26 AO 91/51 (66) SA 15:18:53 Signed By Alondra Sena MD On 04/20/2019 19:30:11 Alondra Sena MD
--- NOTE | 2019-04-20 21:07 | NURSING ---
Report called to ALINA Samuel at [facility] at this time.
[2019-04-20] MEDS: Nitroglycerin Oint 1 INCH PACKET 0.5 INCH TRANSDERM. (21:26)
== END 2019-04-20 21:40 | disposition short-term general hospital (02) | DRG 281 ==
LOC: ED 14:20 → PCU 04-23 08:23
PROVIDERS: Admitting Provider Family Medicine; Emergency Provider Emergency Medicine; PCP Internal Medicine; Visit Provider Specialist
DX: I21.4 Non-ST elevation (NSTEMI) myocardial infarction (principal); Q23.1 Congenital insufficiency of aortic valve; I25.110 Atherosclerotic heart disease of native coronary artery with unstable angina pectoris; I10 Essential (primary) hypertension; E78.2 Mixed hyperlipidemia; Z79.84 Long term (current) use of oral hypoglycemic drugs; F17.210 Nicotine dependence, cigarettes, uncomplicated; E11.9 Type 2 diabetes mellitus without complications; J44.9 Chronic obstructive pulmonary disease, unspecified; K21.9 Gastro-esophageal reflux disease without esophagitis
CPT/HCPCS: 71045; 80048; 80320; 82962; 83735; 84484; 85025; 85610; 85730; 93005; 93454; 99152; 99153; 99285; J7030; J7040; Q9967; A4216; C1769; C1894; G0480

== ENCOUNTER 2019-05-19 01:46 | Emergency (ER) | payer MEDICARE, MEDICAID, SELFPAY ==
[2019-05-19 01:46] VITALS: TEMP 28.6; O2SAT 68; BMI 32.6
[2019-05-19 01:53] VITALS: BP 82/46; O2SAT 68
--- NOTE | 2019-05-19 02:13 | ED.DCSUM_ITS ---
History of Present Illness Chief Complaint: CPR Informant: Charging Manipulator Narrative: Patient presents as a cardiac arrest. EMS reports that there was no bystander CPR in progress and downtime prior to their arrival was 5-10 minutes. The arrest was witnessed by family. Paramedics placed an intraosseous line in the right shoulder, perform CPR, assessed rhythm which was initially ventricular fibrillation, he was shocked several times and they gave medications while giving CPR as follows: Epinephrine 1 mg x 7, sodium bicarb x1 amp, amiodarone 300 mg x 1. They state that their last rhythm was asystole. Further history that was available later when family arrived: Patient has significant history of coronary artery disease, had been having chest pain off and on, and recently had a heart cath showing triple-vessel disease and he has congestive heart failure with an ejection fraction of 20% without a defibrillator. He had been referred for CABG and valve replacement at [facility] and it was scheduled last week but he postponed it because he was scared of getting heart surgery. It was now scheduled for this coming week, today being Tuesday night. Tonight he was having burning across his upper abdomen/lower chest. His gave him a couple nitroglycerin. He went to the bathroom and then collapsed unconscious. Family called 911 within 1-2 minutes of this occurring. had a hard time getting him out of the bathroom and watched him take one final breath and then was unconscious. He continued to be a very heavy smoker despite all of the above. - Past Medical History (1) CAD (coronary artery disease) Status: Chronic (2) Congestive heart failure Status: Chronic Past Medical History - Allergies and Home Meds Allergies/Adverse Reactions: Allergies No Known Allergies Allergy (Verified 05/19/19 02:21) Primary Care Physician: NOT,DEFINED [NON-STAFF] - Lives: With Family Smoking Status: Heavy Smoker (>10/day) Review of Systems ROS: Unable to Obtain - Due to decreased level of consciousness/unresponsive Physical Exam Vital Signs/Narrative: Vital Signs BP Pulse Ox 05/19/19 01:53 82/46 L 68 General: Obese, - - Unresponsive. GCS 3T. Head: Normocephalic, Atraumatic Eyes: - - Pupils fixed and midpoint, nonresponsive to light ENT: Moist mucous membranes, Nasal congestion Neck: Supple Cardiovascular: - - No heart sounds Respiratory: - - Equal breath sounds bilaterally with bagging attached to I-gel. Bagging easily without resistance. Good fogging of tube without stomach contents. Abdomen: Soft, Nondistended Extremities: - Skin: No rash, No Trauma, Pallor Neurological: - - Unconscious/unresponsive. Low tone. Diagnostic/Tx/Re-eval - Medical Decision Making We continued ACLS protocol, an IV line was placed in the left forearm, we turned the robotic CPR machine off and performed manual CPR. Epinephrine 1 mg was given x2. Rhythm check showed asystole with agonal beats, in addition to once we had a wide complex PEA, but before we could give calcium it quickly decompensated to asystole with agonal beats. I performed a bedside ultrasound, there was no cardiac movement even with these agonal beats. Therefore it was felt appropriate to call the patient , which was done at 0158 at the agreement of the team. I discussed with family afterwards and they were understanding of the outcome, indicating that they were going to be surprised if he survives this and are not interested in an autopsy. Released by the stencil machine operator. Paged PCP, who I suspect will sign the certificate under these circumstances. [facility]. Very likely mechanism of was acute m yocardial infarction, plus or minus ventricular fibrillation. - Critical Care Time Critical care time (excluding procedures): 30-74 minutes - 40 min, Including t gary spent:, Discussing w/Patient &/or Family/Frame Bander, Performing Direct Patient Care at Bedside ED Disposition - Plan for ED Patient: Disposition: Diagnosis: Cardiopulmonary arrest, Acute PA Referrals: NOT,DEFINED [NON-STAFF] -
[2019-05-19 02:31] VITALS: BMI 32.6
== END 2019-05-19 04:30 ==
PROVIDERS: Emergency Provider Emergency Medicine; PCP Internal Medicine
DX: I46.9 Cardiac arrest, cause unspecified (principal); I21.9 Acute myocardial infarction, unspecified; I25.10 Atherosclerotic heart disease of native coronary artery without angina pectoris; I50.9 Heart failure, unspecified; F17.200 Nicotine dependence, unspecified, uncomplicated; E66.9 Obesity, unspecified; Z68.32 Body mass index [BMI] 32.0-32.9, adult
CPT/HCPCS: 92950; 99285; J7030; A4216

== ENCOUNTER 2019-05-19 01:49 | Emergency (ER) | payer MEDICARE, MEDICAID, SELFPAY ==
[2019-04-20 16:31] VITALS: BMI 37.0
== END 2019-05-19 01:49 ==
PROVIDERS: Emergency Provider Emergency Medicine; PCP Internal Medicine
DX: R69 Illness, unspecified (principal)
CPT/HCPCS: J7030